=== PATIENT | female | born 1985 ===

== ENCOUNTER 2016-08-16 22:29 | Inpatient (IN) | payer MEDICAID, SELFPAY ==
[2016-08-16 23:11] VITALS: BMI 28.9
--- NOTE | 2016-08-16 23:14 | OBADHP ---
Datetime: 08/16/2016 23:09 Admit Comment, IP Provider: 41-year-old 003 at weeks gestational age with complaints of contra ctions. Patient denies any vaginal bleeding or leakage of fluids. Patient reports good movement . records reviewed. Otherwise, patient without complaints Past medical history none Past surgical history none Medications vitamins No known drug allergies Obstetrical history full-term normal spontaneous vaginal delivery 3 Social history no tobacco, no alcohol, no drugs Physical exam: Deferred physical exam findings Assessment: 31-year-old 003 at 39 weeks gestational age in active labor, GBS negative. heart mariela ng reassuring. Maternal well-being and well-being reassuring at this time. Plan: Admit for management of labor Patient requesting epidural, contact anesthesia. Discussed plan with patient and all patient questions answered Pelvic Type - PN: Adequate Extremities - PN: Normal Abdomen - PN: Normal Back - PN: Normal Breast - PN: Normal Lungs - PN: Normal Heart - PN: Normal Thyroid - PN: Normal Neurologic - PN: Normal HEENT - PN: Normal General - PN: Normal FHR - Baseline A Provider: 140s-150s Membranes, Provider: Intact Contraction Comments Provider: q2min IP Hx Assessment: The History has been Reviewed and is Current Vital Signs Provider: Reviewed; Within Normal Limits IP Chief Complaint: Uterine contractions NICHD Variability Prov Fetus A: Moderate 6-25bpm NICHD Accel Fetus A IP Provider: [id number] FHR Category Provider Fetus A: Category I NICHD Decel Fetus A IP Provider: None Dilatation, Provider: 4-5 Effacement, Provider: 100 Station, Provider: -1 Genitourinary Exam: Normal DTRs - PN: Normal IP Adm Impression: Term, intrauterine ; Active labor; Intact Membranes IP Admit Plan: Admit to unit; Initiate labor protocol
[2016-08-16] MEDS: Lactated Ringer's 1,000 ML IV SCH (23:15)
[2016-08-16] MEDS ORDERED: Lidocaine 1% Inj (20ml) ONE (23:27)
[2016-08-16 23:33] LABS: BASO % 0.1 % (0.0-2.0); EOS % 0.4 % (0.0-4.0); HEMATOCRIT 41.5 % (34.0-47.0); LYMPH # 2.4 K/uL (1.0-4.3); LYMPH % 22.4 % (20.0-40.0); MEAN CELL VOLUME 90.4 fl (81.0-99.0); MEAN CORPUSCULAR HEMOGLOBIN 30.7 pg (27.0-31.0); MEAN CORPUSCULAR HGB CONC 33.9 g/dL (33.0-37.0); MEAN PLATELET VOLUME 9.1 fl (7.2-11.7); MONO # 0.7 K/uL (0.0-0.8); MONO % 6.4 % (0.0-10.0); NEUT # 7.7 K/uL (1.8-7.0); NEUT % 70.7 % (50.0-75.0); NRBC % 0.3 % (0.0-0.0); RED CELL DISTRIBUTION WIDTH 15.7 % (11.5-14.5); WHITE BLOOD COUNT 10.9 K/uL (4.8-10.8)
[2016-08-17] MEDS ORDERED: Oxycodone/Acetaminophen 5/325 mg Tab PO PRN ×4 (01:55→01:58)
[2016-08-17 02:01] VITALS: BP 106/69; PULSE 80; TEMP 98.2
[2016-08-17] MEDS: Lactated Ringer's 1,000 ML IV SCH (02:16)
[2016-08-17 07:25] LABS: MEAN CELL VOLUME 91.7 fl (81.0-99.0); MEAN CORPUSCULAR HGB CONC 32.7 g/dL (33.0-37.0); RED CELL DISTRIBUTION WIDTH 15.3 % (11.5-14.5); WHITE BLOOD COUNT 13.8 K/uL (4.8-10.8)
--- NOTE | 2016-08-17 10:22 | OBPPN ---
Datetime: 08/17/2016 10:19 PP Pain Prov: Within normal limits PP Nausea Prov: Denies PP Flatus Prov: Yes PP Breasts Prov: Not Done PP Heart Prov: Normal PP Lungs Prov: Normal PP Abdomen/Uterus Prov: Normal PP Lochia Prov: Normal PP Vulva/Perineum Prov: Not Done PP CVA Tenderness Prov: Normal PP Extremities Prov: Normal PP Impression Prov: Normal progression PP Plan Prov: Continue present management PP Progress Note Prov: Doing well no complaints reports minimal lochia ambulating voiding without di fficulty Vital signs stable afebrile Uterus firm below the umbilicus Post day #1 Ambulation, analgesia, anticipate discharge in a.m. Vital Signs Provider PP: Reviewed
[2016-08-18 08:43] LABS: BASO % 0.3 % (0.0-2.0); EOS # 0.1 K/uL (0.0-0.7); EOS % 1.1 % (0.0-4.0); HEMATOCRIT 38.1 % (34.0-47.0); LYMPH # 2.4 K/uL (1.0-4.3); LYMPH % 29.7 % (20.0-40.0); MEAN CELL VOLUME 92.5 fl (81.0-99.0); MEAN CORPUSCULAR HEMOGLOBIN 29.9 pg (27.0-31.0); MEAN CORPUSCULAR HGB CONC 32.3 g/dL (33.0-37.0); MEAN PLATELET VOLUME 8.7 fl (7.2-11.7); MONO # 0.6 K/uL (0.0-0.8); MONO % 7.9 % (0.0-10.0); NEUT # 4.9 K/uL (1.8-7.0); NRBC % 0.1 % (0.0-0.0); RED CELL DISTRIBUTION WIDTH 15.8 % (11.5-14.5)
--- NOTE | 2016-08-18 16:27 | OBPPN ---
Datetime: 08/18/2016 08:41 PP Pain Prov: Within normal limits PP Nausea Prov: Denies PP Flatus Prov: Yes PP BM Prov: Yes PP Heart Prov: Normal PP Lungs Prov: Normal PP Abdomen/Uterus Prov: Normal PP Lochia Prov: Normal PP CVA Tenderness Prov: Normal PP Extremities Prov: Normal PP C/S Incision Prov: Not Applicable PP Progress Prov: Normal PP Impression Prov: Normal progression PP Plan Prov: Continue present management PP Progress Note Prov: PPD 1 Patient doing well this AM, denies pain, tolerating PO diet, ambulating without difficulty, has fl atus and bowel movement, normal urine output. 15-20 min each breast, also bottle feedin g. Patient has no complaints or concerns at this time. PE Cardiac: S1 S2 normal, no murmurs/rubs or gallops Lungs: CTABL Abd: bowel sounds present, uterus firm below umbilicus, no tenderness to palpation Ext: no edema A: 31 yr on PPD 1 s/p P: -Continue present management -pain management -encouraged ambulation -encouraged adequate hydrationa and PO intake, Lynnette Boateng M.D. PGY-[address] Tsai: Patient evalauted independently by myself, patient stable and ready for disc harge. Discharge instructions reviewed with patient IP PP Procedures: None Vital Signs Provider PP: Reviewed; Within Normal Limits
--- NOTE | 2016-08-18 16:27 | OBDCSUM ---
Datetime: 08/18/2016 16:25 Discharged to, Provider: Home Follow up at, Provider: OB Disch Instr Activity: Normal activity Disch Instr Diet: Regular Discharge Instructions, Provider: Routine instructions given Discharge Diagnosis, Provider: Term Delivered Discharge Time: 08/18/2016 16:25 Follow up in weeks, Provider: 6 wks Disch Referrals: None Contraception discussed, Prov: Yes Disch Activity Restrictions: No sexual activity; Nothing in vagina - [place], tampons, douche Discharge Comment, Provider: Return to hospital if increased bleeding, pain, temp
== END 2016-08-18 17:30 | disposition home or self-care (01) | DRG 775 ==
LOC: H.EROB2 22:29 → H.L&D 23:15 → H.OB/GYN 08-17 02:15
PROVIDERS: ADMIT Obstetrics & Gynecology; ATTEND Obstetrics & Gynecology
PROC: 4A1HXCZ Monitoring of Products of Conception, Cardiac Rate, External Approach (ICD-10-PCS; 2016-08-16)
PROC: 10E0XZZ Delivery of Products of Conception, External Approach (ICD-10-PCS; principal; 2016-08-17)
DX: O62.3 Precipitate labor (principal); Z37.0 Single live birth; Z3A.39 39 weeks gestation of pregnancy